=== PATIENT | male | born 1985 | race Caucasian/White ===

== ENCOUNTER 2018-09-07 06:19 | Emergency (ER) | payer OTHER ==
[~2018-09-07] VITALS: Ht 190.5 cm; Wt 131.5 kg
[2018-09-07] MEDS ORDERED: LISINOPRIL10 MG PO (06:25)
[2018-09-07] MEDS ORDERED: PREDNISONE50 MG PO (08:59)
[2018-09-07] MEDS ORDERED: IBUPROFEN 800800 M1 PO (08:59)
[2018-09-07] MEDS ORDERED: FLEXERIL PO (08:59)
[2018-09-07] MEDS ORDERED: NORCO 5-325 TA1 EAC1 PO (08:59)
[2018-09-07 09:00] VITALS: BP 144/82
== END 2018-09-07 09:27 | disposition home or self-care (01) ==
LOC: M.ERS 06:19
DX: M54.16 Radiculopathy, lumbar region (principal); I10 Essential (primary) hypertension

== ENCOUNTER 2018-09-09 11:55 | Emergency (ER) | payer OTHER ==
[~2018-09-09] VITALS: Ht 190.5 cm; Wt 131.5 kg
[~2018-09-09 11:55] MED LIST: FLEXERIL PO; IBUPROFEN 800800 M1 PO; LISINOPRIL10 MG PO; NORCO 5-325 TA1 EAC1 PO; PREDNISONE50 MG PO
[2018-09-09 12:25] LABS: HEMATOCRIT 49.1 % (42.0-52.0); HEMOGLOBIN 16.7 gm/dL (14.0-18.0); MCH 28.8 pg (26.0-34.0); MCV 84.8 fL (80.0-100.0); MPV 8.5 fl. (7.2-11.1); NUCLEATED RBCS 0 /100WBC; PLATELET COUNT* 292 thou/uL (150-400); RBC 5.79 mil/uL (4.50-6.00); RDW-CV 12.7 % (10.5-14.5); WBC 13.4 thou/uL (4.0-11.0)
[2018-09-09 12:31] LABS: CALCIUM 8.7 mg/dL (8.5-10.1); CREATININE 1.2 mg/dL (0.6-1.3); POTASSIUM 4.6 mmol/L (3.5-5.1)
[2018-09-09 12:36] LABS: ALBUMIN 3.9 g/dL (3.4-5.0); TOTAL BILIRUBIN 1.1 mg/dL (<0.1-1.0); TOTAL PROTEIN 7.6 g/dL (6.4-8.2)
[2018-09-09 12:41] LABS: ABSOLUTE BASOPHILS 0.1 thou/uL (0.0-0.2); ABSOLUTE LYMPHOCYTES 1.9 thou/uL (0.8-5.3); ABSOLUTE MONOCYTES 0.3 thou/uL (0.0-1.2); ABSOLUTE NEUTROPHILS 11.1 thou/uL (1.6-8.1); ATYPICAL LYMPHS 3 %; PLATELET ESTIMATE ADEQUATE
[2018-09-09 12:52] VITALS: BP 179/88
== END 2018-09-09 12:53 | disposition home or self-care (01) ==
LOC: M.ERS 11:55
PROVIDERS: Physician Assistant
DX: M54.5 Low back pain (principal); M25.551 Pain in right hip; I10 Essential (primary) hypertension; Z98.890 Other specified postprocedural states